=== PATIENT | female | born 1970 | race Caucasian/White ===

== ENCOUNTER 2020-03-14 12:16 | Emergency (ER) | payer MEDICAID ==
[~2020-03-14] VITALS: Ht 152.4 cm; Wt 64.2 kg
[2020-03-14 12:58] LABS: BASOPHILS # (AUTO) 0.1 X10'3 (0-0.2); BASOPHILS % (AUTO) 0.6 % (0-1); EOSINOPHILS # (AUTO) 0.1 X10'3 (0-0.9); EOSINOPHILS % (AUTO) 1.1 % (0-6); HEMATOCRIT 43.1 % (35.0-45.0); HEMOGLOBIN 14.7 g/dl (12.0-16.0); LYMPHOCYTES # (AUTO) 2.6 X10'3 (1.1-4.8); LYMPHOCYTES % (AUTO) 32.8 % (21-51); MEAN CORPUSCULAR HEMOGLOBIN 31.7 PG (27.0-31.0); MEAN CORPUSCULAR HGB CONC 34.2 g/dL (33.0-36.5); MEAN CORPUSCULAR VOLUME 92.6 FL (78-98); MEAN PLATELET VOLUME 8.3 FL (7.4-10.4); MONOCYTES # (AUTO) 0.6 X10'3 (0-0.9); NEUTROPHILS # (AUTO) 4.7 X10'3 (1.8-7.7); NEUTROPHILS % (AUTO) 58.5 % (42-75); PLATELET COUNT 256 X10'3 (140-440); RED BLOOD COUNT 4.65 X10'6 (4.20-5.60)
[2020-03-14 13:05] LABS: ALBUMIN 4.1 G/DL (3.4-5.0); ANION GAP 10 (8-16); BLOOD UREA NITROGEN 16 MG/DL (7-18); BUN/CREATININE RATIO 21.6 (6.6-38.0); CALCIUM 9.5 MG/DL (8.5-10.1); CHLORIDE 107 MMOL/L (99-107); CREATININE 0.74 MG/DL (0.40-0.90); GLUCOSE 95 MG/DL (70-104); POTASSIUM 4.1 MMOL/L (3.5-5.1); SODIUM 140 MMOL/L (135-145); TOTAL CARBON DIOXIDE 22.9 MMOL/L (24-32); eGFR 83 ML/MIN
[2020-03-14] MEDS ORDERED: iohexol 350MG/ML 100ml bottle IV ONE (13:07)
[2020-03-14 14:11] VITALS: BP 142/55
[2020-03-14] MEDS ORDERED: dexamethasone sod phosphate 10mg/ml inj IM STA (14:13)
[2020-03-14] MEDS ORDERED: proCHLORperazine 10 MG/2 ml inj IM ONE (14:15)
== END 2020-03-14 14:37 | disposition home or self-care (01) ==
LOC: ER 12:16
DX: R51 Headache (principal)
CPT/HCPCS: 36415; 70496; 70498; 80048; 85025; 96374; 96375; 99285; J0780; J1100; Q9967; 96372

== ENCOUNTER 2020-09-24 09:47 | Emergency (ER) | payer MEDICAID ==
[~2020-09-24] VITALS: Ht 152.4 cm; Wt 66.4 kg
[2020-09-24] MEDS ORDERED: pantoprazole 40 MG vial IV ONE (10:00)
[2020-09-24] MEDS ORDERED: ondansetron/PF 4mg/2ml inj IV ONE (10:00)
[2020-09-24] MEDS ORDERED: normal saline 1000ML IV soln IV ONE (10:00)
--- NOTE | 2020-09-24 10:03 | NUR ---
Per pt, she was COVID swabbed just prior to being sent here. Pt states that she is asymptomatic, and was unsure why she was told she "had to be swabbed" by the Urgent Care. FACUNDO Muhammad as well as ER mortgage loan counselor aware, and FACUNDO Muhammad is comfortable not isolating the pt at this time.
[2020-09-24] MEDS ORDERED: pantoprazole 40MG/NS 100ML BAG 100 ML IV SCH (10:06)
[2020-09-24 10:32] LABS: BASOPHILS % (AUTO) 0.5 % (0-1); EOSINOPHILS # (AUTO) 0.1 X10'3 (0-0.9); EOSINOPHILS % (AUTO) 1.4 % (0-6); HEMATOCRIT 43.7 % (35.0-45.0); HEMOGLOBIN 14.9 g/dl (12.0-16.0); LYMPHOCYTES # (AUTO) 2.3 X10'3 (1.1-4.8); LYMPHOCYTES % (AUTO) 28.6 % (21-51); MEAN CORPUSCULAR HEMOGLOBIN 31.7 PG (27.0-31.0); MEAN CORPUSCULAR VOLUME 93.3 FL (78-98); MEAN PLATELET VOLUME 8.6 FL (7.4-10.4); MONOCYTES # (AUTO) 0.6 X10'3 (0-0.9); MONOCYTES % (AUTO) 7.1 % (2-12); NEUTROPHILS % (AUTO) 62.4 % (42-75); PLATELET COUNT 228 X10'3 (140-440); RED BLOOD COUNT 4.69 X10'6 (4.20-5.60); RED CELL DISTRIBUTION WIDTH 13.2 % (11.5-14.5)
[2020-09-24 10:46] LABS: ALANINE AMINOTRANSFERASE 29 U/L (12-78); ALBUMIN 4.2 G/DL (3.4-5.0); ALBUMIN/GLOBULIN RATIO 1.2 (1.1-1.5); ALKALINE PHOSPHATASE 103 IU/L (46-116); ANION GAP 10 (8-16); ASPARTATE AMINO TRANSFERASE 15 U/L (10-37); BILIRUBIN,TOTAL 0.4 MG/DL (0.1-1.0); BLOOD UREA NITROGEN 17 MG/DL (7-18); CALCIUM 9.5 MG/DL (8.5-10.1); CHLORIDE 104 MMOL/L (99-107); CREATININE 0.68 MG/DL (0.40-0.90); GLUCOSE 90 MG/DL (70-104); SODIUM 139 MMOL/L (135-145); TOTAL CARBON DIOXIDE 24.6 MMOL/L (24-32); TOTAL PROTEIN 7.7 G/DL (6.4-8.2); eGFR > 90 ML/MIN
[2020-09-24 11:37] LABS: OCCULT BLOOD STOOL NEGATIVE (Neg)
[2020-09-24] MEDS ORDERED: PANT-47 PO (12:01)
[2020-09-24 13:09] VITALS: BP 117/57
== END 2020-09-24 13:11 | disposition home or self-care (01) ==
LOC: ER 09:48
DX: R10.13 Epigastric pain (principal); R10.30 Lower abdominal pain, unspecified; R11.2 Nausea with vomiting, unspecified; J45.909 Unspecified asthma, uncomplicated; Z72.89 Other problems related to lifestyle; Z79.899 Other long term (current) drug therapy
CPT/HCPCS: 36415; 71045; 74176; 80053; 82272; 85025; 85610; 86885; 86900; 86901; 93005; 96361; 96374; 96375; 99285; C9113; J2405; J7030

== ENCOUNTER 2022-07-16 13:25 | Emergency (ER) | payer MEDICAID ==
[~2022-07-16] VITALS: Ht 152.4 cm; Wt 56.0 kg
[~2022-07-16 13:25] MED LIST: PANT-47 PO
[2022-07-16 14:08] VITALS: BP 145/75
[2022-07-16 15:07] LABS: ALANINE AMINOTRANSFERASE 34 U/L (12-78); ALBUMIN 4.7 G/DL (3.4-5.0); ALBUMIN/GLOBULIN RATIO 1.3 (1.1-1.5); ALKALINE PHOSPHATASE 83 IU/L (46-116); ANION GAP 11 (8-16); ASPARTATE AMINO TRANSFERASE 19 U/L (10-37); BILIRUBIN,TOTAL 0.9 MG/DL (0.1-1.0); BLOOD UREA NITROGEN 16 MG/DL (7-18); BUN/CREATININE RATIO 18.2 (6.6-38.0); CALCIUM 9.7 MG/DL (8.5-10.1); CHLORIDE 95 MMOL/L (99-107); CREATININE 0.88 MG/DL (0.40-0.90); GLUCOSE 112 MG/DL (70-104); LIPASE 86 U/L (73-393); SODIUM 138 MMOL/L (135-145); TOTAL CARBON DIOXIDE 31.7 MMOL/L (24-32); TOTAL PROTEIN 8.3 G/DL (6.4-8.2); eGFR 68 ML/MIN
[2022-07-16 15:09] LABS: BASOPHILS # (AUTO) 0.1 X10'3 (0-0.2); BASOPHILS % (AUTO) 0.5 % (0-1); EOSINOPHILS % (AUTO) 0.1 % (0-6); HEMATOCRIT 48.3 % (35.0-45.0); HEMOGLOBIN 16.6 g/dl (12.0-16.0); LYMPHOCYTES # (AUTO) 2.7 X10'3 (1.1-4.8); LYMPHOCYTES % (AUTO) 21.8 % (21-51); MEAN CORPUSCULAR HEMOGLOBIN 32.2 PG (27.0-31.0); MEAN CORPUSCULAR HGB CONC 34.4 g/dL (33.0-36.5); MEAN CORPUSCULAR VOLUME 93.7 FL (78-98); MEAN PLATELET VOLUME 8.6 FL (7.4-10.4); MONOCYTES # (AUTO) 1.1 X10'3 (0-0.9); MONOCYTES % (AUTO) 8.8 % (2-12); NEUTROPHILS # (AUTO) 8.6 X10'3 (1.8-7.7); NEUTROPHILS % (AUTO) 68.8 % (42-75); PLATELET COUNT 251 X10'3 (140-440); RED BLOOD COUNT 5.16 X10'6 (4.20-5.60); RED CELL DISTRIBUTION WIDTH 12.9 % (11.5-14.5); WHITE BLOOD COUNT 12.5 X10'3 (4.5-11.0)
[2022-07-16 15:15] LABS: URINE HCG NEGATIVE (NEG)
[2022-07-16 15:18] LABS: CLARITY,URINE SLIGHTLY CLOUDY (Clear); COLOR,URINE YELLOW (Yellow); GLUCOSE, URINE NEGATIVE (Neg); KETONES,URINE 40 mg/dl (Neg); LEUKOCYTE ESTERASE ,URINE NEGATIVE (Neg); NITRITES, URINE NEGATIVE (Neg); OCCULT BLOOD,URINE NEGATIVE (Neg); PH,URINE 6.5 (4.8-8.0); PROTEIN,URINE 30 mg/dl (Neg)
[2022-07-16 15:23] LABS: UA COLLECTION TYPE CLN CATCH MIDSTREAM
[2022-07-16 15:27] LABS: MUCUS STRANDS MANY /LPF (Neg); SQUAMOUS EPITHELIAL CELL,UR MANY /LPF (FEW)
[2022-07-16 15:28] LABS: HYALINE CASTS 0-3 /LPF (NEGATIVE)
[2022-07-16 15:29] LABS: BACTERIA,URINE 1+ /HPF (Neg); WBC,URINE 0-4 /HPF (0-4)
[2022-07-16] MEDS ORDERED: ONDA-103 PO (17:23)
[2022-07-16] MEDS ORDERED: ondansetron 4mg rapidly disintigrating tab PO ONE (17:25)
== END 2022-07-16 17:53 | disposition home or self-care (01) ==
LOC: ER 13:25
DX: R11.2 Nausea with vomiting, unspecified (principal); F12.10 Cannabis abuse, uncomplicated; F10.10 Alcohol abuse, uncomplicated; Y90.9 Presence of alcohol in blood, level not specified; J45.909 Unspecified asthma, uncomplicated; Z79.899 Other long term (current) drug therapy
CPT/HCPCS: 36415; 80053; 81001; 81025; 83690; 85025; 99283

== ENCOUNTER 2022-09-15 12:55 | Emergency (ER) | payer MEDICAID ==
[~2022-09-15] VITALS: Ht 157.5 cm; Wt 56.8 kg
[~2022-09-15 12:55] MED LIST changes: +ONDA-103 PO
[2022-09-15] MEDS ORDERED: proCHLORperazine 10 MG/2 ml inj IV ONE (13:50)
[2022-09-15] MEDS ORDERED: metoclopramide 5 mg/ml inj IV ONE (13:55)
[2022-09-15] MEDS ORDERED: diphenhydrAMINE 50 mg/ml inj IV ONE (13:55)
[2022-09-15] MEDS: normal saline 1000ML IV soln IVB ONE ×2 (13:58→14:37)
[2022-09-15] MEDS: famotidine/PF 10 mg/ml inj IV ONE ×2 (13:58→15:04)
[2022-09-15] MEDS ORDERED: haloperidol lactate 5mg/ml inj IM ONE (14:25)
[2022-09-15] MEDS ORDERED: dicyclomine 10mg/ml 2ml ampule IM ONE (14:25)
[2022-09-15] MEDS ORDERED: ketorolac trometh. 30mg/ml inj. IV ONE (14:25)
[2022-09-15 14:27] LABS: BASOPHILS # (AUTO) 0.2 X10'3 (0-0.2); BASOPHILS % (AUTO) 0.9 % (0-1); EOSINOPHILS % (AUTO) 0 % (0-6); HEMATOCRIT 43.8 % (35.0-45.0); HEMOGLOBIN 15.1 g/dl (12.0-16.0); LYMPHOCYTES # (AUTO) 1.3 X10'3 (1.1-4.8); MEAN CORPUSCULAR HEMOGLOBIN 33.4 PG (27.0-31.0); MEAN CORPUSCULAR HGB CONC 34.5 g/dL (33.0-36.5); MEAN CORPUSCULAR VOLUME 96.9 FL (78-98); MEAN PLATELET VOLUME 8.3 FL (7.4-10.4); MONOCYTES # (AUTO) 0.7 X10'3 (0-0.9); MONOCYTES % (AUTO) 3.6 % (2-12); NEUTROPHILS # (AUTO) 15.9 X10'3 (1.8-7.7); NEUTROPHILS % (AUTO) 88.5 % (42-75); PLATELET COUNT 238 X10'3 (140-440); RED BLOOD COUNT 4.52 X10'6 (4.20-5.60); RED CELL DISTRIBUTION WIDTH 13.3 % (11.5-14.5)
[2022-09-15 14:44] LABS: ALANINE AMINOTRANSFERASE 37 U/L (12-78); ALBUMIN 4.5 G/DL (3.4-5.0); ALBUMIN/GLOBULIN RATIO 1.3 (1.1-1.5); ALKALINE PHOSPHATASE 81 IU/L (46-116); ANION GAP 15 (8-16); ASPARTATE AMINO TRANSFERASE 29 U/L (10-37); BILIRUBIN,TOTAL 0.9 MG/DL (0.1-1.0); BLOOD UREA NITROGEN 19 MG/DL (7-18); BUN/CREATININE RATIO 20.4 (6.6-38.0); CALCIUM 9.7 MG/DL (8.5-10.1); CHLORIDE 102 MMOL/L (99-107); CREATININE 0.93 MG/DL (0.40-0.90); GLUCOSE 147 MG/DL (70-104); POTASSIUM 3.8 MMOL/L (3.5-5.1); SODIUM 142 MMOL/L (135-145); TOTAL CARBON DIOXIDE 25.5 MMOL/L (24-32); TOTAL PROTEIN 7.9 G/DL (6.4-8.2); eGFR 64 ML/MIN
[2022-09-15 14:46] LABS: ETHANOL < 0.010 GM/DL (0.0-0.010); LIPASE 104 U/L (73-393)
[2022-09-15] MEDS ORDERED: ONDA8TAB13 PO (15:58)
[2022-09-15 16:15] VITALS: BP 143/79
== END 2022-09-15 16:16 | disposition home or self-care (01) ==
LOC: ER 12:55
DX: K29.20 Alcoholic gastritis without bleeding (principal); J45.909 Unspecified asthma, uncomplicated; F12.90 Cannabis use, unspecified, uncomplicated; Z88.8 Allergy status to other drugs, medicaments and biological substances
CPT/HCPCS: 36415; 74176; 80053; 80320; 83690; 84484; 85025; 96361; 96372; 96374; 96375; 99284; J0500; J1200; J1885; J2765; J3490; J7030